=== PATIENT | female | born 1950 | race Caucasian/White ===

== ENCOUNTER → 2018-02-24 | Outpatient (CLI) | payer MEDICARE, OTHER ==
[2018-02-24 09:30] LABS: BASOPHILS # (AUTO) 0.1 10^3/uL (0.0-0.1); BASOPHILS % (AUTO) 2 % (0-10); EOSINOPHILS # (AUTO) 0.1 10^3/uL (0.0-0.3); EOSINOPHILS % (AUTO) 3 % (0-10); HEMATOCRIT 39 % (35-52); HEMOGLOBIN 13.6 G/DL (11.5-16.0); LYMPHOCYTES # (AUTO) 1.1 X 10^3 (1.0-4.0); LYMPHOCYTES % (AUTO) 33 % (12-44); MEAN CORPUSCULAR HEMOGLOBIN 29 PG (25-34); MEAN CORPUSCULAR HGB CONC 35 G/DL (32-36); MEAN CORPUSCULAR VOLUME 85 FL (80-99); MONOCYTES # (AUTO) 0.3 X 10^3 (0.0-1.0); MONOCYTES % (AUTO) 8 % (0-12); NEUTROPHILS # (AUTO) 1.8 X 10^3 (1.8-7.8); NEUTROPHILS % (AUTO) 54 % (42-75); PLATELET COUNT 266 10^3/uL (130-400); RED BLOOD COUNT 4.65 10^6/uL (4.35-5.85); RED CELL DISTRIBUTION WIDTH 12.6 % (10.0-14.5); WHITE BLOOD COUNT 3.4 10^3/uL (4.3-11.0)
[2018-02-24 09:55] LABS: ERYTHROCYTE SEDIMENTATION RATE 7 MM/HR (0-30)
[2018-02-24 09:57] LABS: ALANINE AMINOTRANSFERASE 24 U/L (0-55); ALKALINE PHOSPHATASE 54 U/L (40-136); BILIRUBIN,TOTAL 0.4 MG/DL (0.1-1.0); BUN/CREATININE RATIO 23; CALCIUM 9.3 MG/DL (8.5-10.1); CARBON DIOXIDE 25 MMOL/L (21-32); CHLORIDE 107 MMOL/L (98-107); CREATININE SERUM 0.87 MG/DL (0.60-1.30); GFR ESTIMATED > 60; GLUCOSE 99 MG/DL (70-105); POTASSIUM 4.1 MMOL/L (3.6-5.0); SODIUM 141 MMOL/L (135-145); TOTAL PROTEIN 6.8 GM/DL (6.4-8.2)
== END ==
LOC: LAB 09:06
PROVIDERS: ATTEND Allergy & Immunology
DX: E03.9 Hypothyroidism, unspecified (principal); E55.9 Vitamin D deficiency, unspecified; D83.9 Common variable immunodeficiency, unspecified; Z79.899 Other long term (current) drug therapy
CPT/HCPCS: 36415; 80053; 82306; 82784; 82787; 84436; 84443; 84481; 85025; 85652; 86141

== ENCOUNTER → 2018-03-15 | Outpatient (CLI) | payer MEDICARE, OTHER ==
[2018-03-15 10:21] LABS: BASOPHILS # (AUTO) 0.1 10^3/uL (0.0-0.1); BASOPHILS % (AUTO) 2 % (0-10); EOSINOPHILS # (AUTO) 0.1 10^3/uL (0.0-0.3); EOSINOPHILS % (AUTO) 3 % (0-10); HEMATOCRIT 41 % (35-52); LYMPHOCYTES # (AUTO) 1.5 X 10^3 (1.0-4.0); LYMPHOCYTES % (AUTO) 41 % (12-44); MEAN CORPUSCULAR HEMOGLOBIN 29 PG (25-34); MEAN CORPUSCULAR HGB CONC 35 G/DL (32-36); MEAN CORPUSCULAR VOLUME 85 FL (80-99); MEAN PLATELET VOLUME 8.7 FL (7.4-10.4); MONOCYTES # (AUTO) 0.3 X 10^3 (0.0-1.0); MONOCYTES % (AUTO) 9 % (0-12); NEUTROPHILS # (AUTO) 1.7 X 10^3 (1.8-7.8); NEUTROPHILS % (AUTO) 45 % (42-75); PLATELET COUNT 256 10^3/uL (130-400); RED BLOOD COUNT 4.76 10^6/uL (4.35-5.85); RED CELL DISTRIBUTION WIDTH 12.3 % (10.0-14.5); WHITE BLOOD COUNT 3.7 10^3/uL (4.3-11.0)
== END ==
LOC: LAB 10:10
PROVIDERS: ATTEND Allergy & Immunology
DX: R79.9 Abnormal finding of blood chemistry, unspecified (principal); Z79.899 Other long term (current) drug therapy
CPT/HCPCS: 36415; 85025

== ENCOUNTER → 2018-09-18 | Outpatient (CLI) | payer MEDICARE, OTHER ==
[2018-09-18 12:17] LABS: BASOPHILS # (AUTO) 0.1 10^3/uL (0.0-0.1); BASOPHILS % (AUTO) 1 % (0-10); EOSINOPHILS # (AUTO) 0.1 10^3/uL (0.0-0.3); EOSINOPHILS % (AUTO) 2 % (0-10); HEMATOCRIT 42 % (35-52); HEMOGLOBIN 14.3 G/DL (11.5-16.0); LYMPHOCYTES # (AUTO) 1.5 X 10^3 (1.0-4.0); LYMPHOCYTES % (AUTO) 37 % (12-44); MEAN CORPUSCULAR HEMOGLOBIN 29 PG (25-34); MEAN CORPUSCULAR HGB CONC 35 G/DL (32-36); MEAN CORPUSCULAR VOLUME 85 FL (80-99); MEAN PLATELET VOLUME 8.8 FL (7.4-10.4); MONOCYTES # (AUTO) 0.4 X 10^3 (0.0-1.0); MONOCYTES % (AUTO) 9 % (0-12); NEUTROPHILS % (AUTO) 51 % (42-75); PLATELET COUNT 289 10^3/uL (130-400); RED CELL DISTRIBUTION WIDTH 12.9 % (10.0-14.5)
[2018-09-18 12:32] LABS: ALBUMIN 4.2 GM/DL (3.2-4.5); BILIRUBIN,TOTAL 0.6 MG/DL (0.1-1.0); CALCIUM 9.5 MG/DL (8.5-10.1); CREATININE SERUM 1.09 MG/DL (0.60-1.30); POTASSIUM 3.9 MMOL/L (3.6-5.0); TOTAL PROTEIN 7.3 GM/DL (6.4-8.2)
[2018-09-18 13:01] LABS: ERYTHROCYTE SEDIMENTATION RATE 17 MM/HR (0-30)
== END ==
LOC: LAB 11:48
PROVIDERS: ATTEND Internal Medicine
DX: D83.9 Common variable immunodeficiency, unspecified (principal); Z79.899 Other long term (current) drug therapy
CPT/HCPCS: 36415; 80053; 82784; 82787; 85025; 85652; 86141

== ENCOUNTER → 2019-02-26 | Outpatient (CLI) | payer MEDICARE, OTHER | LOC: LAB 09:20 | PROVIDERS: ATTEND Internal Medicine | DX: D83.9 Common variable immunodeficiency, unspecified (principal) ==

== ENCOUNTER → 2019-02-26 | Outpatient (CLI) | payer MEDICARE, OTHER ==
[2019-02-26 10:11] LABS: CALCIUM 9.7 MG/DL (8.5-10.1); CREATININE SERUM 0.99 MG/DL (0.60-1.30); POTASSIUM 3.8 MMOL/L (3.6-5.0)
== END ==
LOC: LAB 09:17
PROVIDERS: ATTEND Allergy & Immunology
DX: N18.3 Chronic kidney disease, stage 3 (moderate) (principal)
CPT/HCPCS: 36415; 80048; 82784; 82787

== ENCOUNTER → 2019-06-21 | Outpatient (CLI) | payer MEDICARE, OTHER ==
--- NOTE | 2019-06-23 13:05 | Diagnostic Imaging Report ---
INDICATION: Routine screening. COMPARISON: Comparison is made with prior mammograms from 06/19/2017 and 05/26/2013. 2-D and 3-D bilateral screening mammography was performed. The current study was also evaluated with a Computer Aided Detection (CAD) system. 3-D tomosynthesis was also performed and reviewed. FINDINGS: Both breasts are heterogeneously dense, limiting the sensitivity of mammography. Benign parenchymal and vascular calcifications are identified bilaterally. No dominant mass or malignant-appearing microcalcifications are seen. Axillae are unremarkable. IMPRESSION: No mammographic features suspicious for malignancy are identified. ACR BI-RADS Category 2: Benign findings. Result letter will be mailed to the patient. Note: At least 10% of breast cancer is not imaged by mammography. Dictated by: Dictated on workstation # [id number]
== END ==
LOC: RAD 12:00
PROVIDERS: ATTEND Family Medicine
DX: Z12.31 Encounter for screening mammogram for malignant neoplasm of breast (principal)
CPT/HCPCS: 76642; 77067

== ENCOUNTER 2019-07-20 12:43 | Emergency (ER) | payer MEDICARE, OTHER ==
[~2019-07-20] VITALS: Ht 157 cm; Wt 59.0 kg
[2019-07-20] MEDS ORDERED: TETANUS,DIPTH,PERTUSS P/F (BOOSTRIX) 0.5 ML VIAL IM ONE (12:45)
[2019-07-20] MEDS ORDERED: NS IV 1000 ML 1,000 ML IV SCH (12:45)
--- NOTE | 2019-07-20 12:48 | ED General ---
General Stated Complaint: STROKE History of Present Illness Date Seen by Provider: Jul 20, 2019 Time Seen by Provider: 12:48 Initial Comments Patient brought in by EMS for evaluation of altered mental status. Patient is independent and lives on her own and is sharp and takes care of her own affairs. Reportedly patient spoke to her sister this morning at 7:30 and was normal. Patient's friend lives across the street and the friend tried calling her with no answer and went to the door and there is no answer and the friend called the [employer]'s department for a welfare check. After checking on the patient she was laying on the bathroom floor and minimally responsive so she was brought to the emergency room for further evaluation. On exam she has an abrasion with possible small laceration to right forehead and orbital contusion. She has a fixed gaze to the left with right-sided facial droop and right arm and leg weakness. The friend brought her medications it sounds as if she is on an infusion for an immune system issue but she did not want oh what was at the time. Reportedly she is also on a thyroid medication but did not bring that medicine. She also brought her medications with her which included triamterene hydrochlorothiazide, an SSRI, alprazolam, and some sinus medication as well as a prescription for Augmentin that was written 2 days ago. Patient is poorly verbal as she will moan and try and say yes and no. She has sonorous respirations with her eyes closed when I wake her up she can protect her airway and she has a patent airway with normal oxygen saturation on room air. There was no blood thinners or mention of blood thinners from the friend. Allergies and Home Medications Allergies Coded Allergies: No Known Drug Allergies (Unverified , 07/20/19) Patient Home Medication List Home Medication List Reviewed: Yes Review of Systems Review of Systems Constitutional: no symptoms reported (unable to obtain ROS due to inability to communicate) Past [employer]-Imppkv-Tvhk[employer] Hx Patient Social History Recent Foreign Travel: Yes Physical Exam Vital Signs Vital Signs - First Documented 07/20/19 12:43 Temp 35.5 Pulse 85 Resp 18 B/P (MAP) 106/72 (83) Pulse Ox 96 O2 Delivery Nasal Cannula Capillary Refill : Height, Weight, BMI Height: '" Weight: lbs. oz. kg; BMI Method: General Appearance: No Apparent Distress HEENT: Other (pupils are equal and reactive to light but there is a fixed left gaze) Neck: Supple Respiratory: Normal Breath Sounds, No Respiratory Distress, Other (sonorous respirations noted) Cardiovascular: Regular Rate, Rhythm Gastrointestinal: Non Tender, Soft Back: Normal Inspection Extremity: Normal Capillary Refill Neurologic/Psychiatric: Alert, Other (right facial droop as well as right upper and lower extremities are completely flaccid. Patient has minimal drift on left arm and leg when lifting off the bed. She will follow commands and try and say words but has slurred speech that is not understandable.) Skin: Warm/Dry, Other (abrasion noted above right eyebrow and the wound has not been cleansed to see if it needed repair at time of transfer.) Focused Exam Lactate Level 07/20/19 13:25: Lactic Acid Level Laboratory Tests Test 07/20/19 13:25 Progress/Results/Core Measures Suspected Sepsis SIRS Temperature: Pulse: Respiratory Rate: Laboratory Tests 07/20/19 13:16: White Blood Count 8.5 Blood Pressure / Mean: 07/20/19 13:25: Laboratory Tests 07/20/19 13:16: Platelet Count 312 Results/Orders Lab Results Laboratory Tests Test 07/20/19 13:16 07/20/19 13:25 Range/Units White Blood Count 8.5 4.3-11.0 10^3/uL Red Blood Count 4.70 4.35-5.85 10^6/uL Hemoglobin 13.5 11.5-16.0 G/DL Hematocrit 41 35-52 % Mean Corpuscular Volume 88 80-99 FL Mean Corpuscular Hemoglobin 29 25-34 PG Mean Corpuscular Hemoglobin Concent 33 32-36 G/DL Red Cell Distribution Width 11.9 10.0-14.5 % Platelet Count 312 130-400 10^3/uL Mean Platelet Volume 8.4 7.4-10.4 FL Neutrophils (%) (Auto) 87 H 42-75 % Lymphocytes (%) (Auto) 11 L 12-44 % Monocytes (%) (Auto) 2 0-12 % Eosinophils (%) (Auto) 0 0-10 % Basophils (%) (Auto) 1 0-10 % Neutrophils # (Auto) 7.4 1.8-7.8 X 10^3 Lymphocytes # (Auto) 0.9 L 1.0-4.0 X 10^3 Monocytes # (Auto) 0.2 0.0-1.0 X 10^3 Eosinophils # (Auto) 0.0 0.0-0.3 10^3/uL Basophils # (Auto) 0.1 0.0-0.1 10^3/uL Urine Color YELLOW Urine Clarity CLEAR Urine pH 8.0 5-9 Urine Specific [place] 1.020 1.016-1.022 Urine Protein NEGATIVE NEGATIVE Urine Glucose (UA) NEGATIVE NEGATIVE Urine Ketones NEGATIVE NEGATIVE Urine Nitrite NEGATIVE NEGATIVE Urine Bilirubin NEGATIVE NEGATIVE Urine Urobilinogen 0.2 < = 1.0 MG/DL Urine Leukocyte Esterase NEGATIVE NEGATIVE Urine RBC (Auto) NEGATIVE NEGATIVE Urine RBC NONE /HPF Urine WBC 0-2 /HPF Urine Crystals NONE /LPF Urine Bacteria FEW H /HPF Urine Casts NONE /LPF Urine Mucus NEGATIVE /LPF Urine Culture Indicated NO Urine Opiates Screen NEGATIVE NEGATIVE Urine Oxycodone Screen NEGATIVE NEGATIVE Urine Methadone Screen NEGATIVE NEGATIVE Urine Propoxyphene Screen NEGATIVE NEGATIVE Urine Barbiturates Screen NEGATIVE NEGATIVE Ur Tricyclic Antidepressants Screen NEGATIVE NEGATIVE Urine Phencyclidine Screen NEGATIVE NEGATIVE Urine Amphetamines Screen NEGATIVE NEGATIVE Urine Methamphetamines Screen NEGATIVE NEGATIVE Urine Benzodiazepines Screen NEGATIVE NEGATIVE Urine Cocaine Screen NEGATIVE NEGATIVE Urine Cannabinoids Screen NEGATIVE NEGATIVE My Orders Orders - ROYA HAWKINS DO Ct Head/Cervical Spine Wo (07/20/19 12:44) Chest 1 View Ap/Pa Only (07/20/19 12:45) Ekg Tracing (07/20/19 12:45) Alcohol (07/20/19 12:45) Blood Culture (07/20/19 12:45) Cbc With Automated Diff (07/20/19 12:45) Comprehensive Metabolic Panel (07/20/19 12:45) Acetaminophen (07/20/19 12:45) Drug Screen Stat (Urine) (07/20/19 12:45) Lactic Acid Analyzer (07/20/19 12:45) Lipase (07/20/19 12:45) Magnesium (07/20/19 12:45) Partial Thromboplastin Time (07/20/19 12:45) Probnp Fs (07/20/19 12:45) Protime With Inr (07/20/19 12:45) Salicylate (07/20/19 12:45) Troponin I Fs (07/20/19 12:45) Ua Culture If Indicated (07/20/19 12:45) Arterial Blood Gas (07/20/19 12:45) Dipht,Pertuss(Acell),Tet Adult (Boostrix (07/20/19 12:45) Ns Iv 1000 Ml (Sodium Chloride 0.9%) (07/20/19 12:45) Creatine Kinase (07/20/19 12:45) Vital Signs/I&O 07/20/19 12:43 Temp 35.5 Pulse 85 Resp 18 B/P (MAP) 106/72 (83) Pulse Ox 96 O2 Delivery Nasal Cannula Capillary Refill : Progress Note : Progress Note Patient's history and physical exam is consistent with a large MCA stroke. Before CT was read at [address] [place] [address] and started trying to get her transferred to a stroke center they could do clot retrieval. Dr. Allen at [facility] agreed to accept the patient. No further medications ordered or given at this time other than IV fluids and tetanus. We did have a brief discussion regarding intubation and he said his long as she is protecting her airway at this time intubation would be preferred to not be done. I do not think she necessarily needs admitted at this time as she has sonorous respirations with her eyes closed but she will wake up and interact appropriately. EMS was notified of the possibility of intubation and they said they would check on her frequently and monitor her vital signs closely. Patient's friend and sister were both updated and they agreed to the plan for transfer to for possible clot retrieval. I estimated her NIH stroke scale at 26. Obviously she is not a TPA candidate given the timeframe. We did try and arrange air transport however there was weather conditions limiting this possibility so she'll be driven to . Critical care time of 41 minutes. Critical Care Note Critical Care Total Time (minutes) 41 Departure Impression Primary Impression: Left acute arterial ischemic stroke, MCA (middle cerebral artery) Additional Impressions: Abrasion of forehead Contusion of right orbital tissues Disposition: 02 XFER SHT-TRM HOSP Condition: Critical Transfer Transfer Reason: Exceeds level of care Time Spoke to Accepting Phy: 13:30 Transfer Time: 13:50 Transfer Facility: [facility] Method of Transfer: EMS Departure-Patient Inst. Referrals: DMITRIY HERRERA MD (PCP/Family) Primary Care Physician ROYA HAWKINS DO Jul 20, 2019 12:48
--- NOTE | 2019-07-20 13:29 | Diagnostic Imaging Report ---
PROCEDURE: CT head and CT cervical spine without contrast. TECHNIQUE: Multiple contiguous axial images were obtained through the brain and cervical spine without the use of intravenous contrast. Sagittal and coronal reformations through the cervical spine were then performed. Auto Exposure Controls were utilized during the CT exam to meet ALARA standards for radiation dose reduction. All CT scans use one or more of the following dose optimizing techniques: automated exposure control, MA and/or KvP adjustment based on patient size and exam type or iterative reconstruction. INDICATION: Fall and right-sided weakness. COMPARISON: No prior studies are available for comparison. FINDINGS: CT head: There is a subtle area of low density and questionable sulcal effacement in the left middle cerebral artery territory. In addition, there appears to be hyperdense left MCA and features are concerning for an acute/subacute stroke. Right cerebral hemisphere is unremarkable. There is no mass effect or midline shift. No acute intra-axial or extra-axial hemorrhage is detected. Cisterns are patent. Visualized paranasal sinuses are clear. IMPRESSION: Findings suspicious for left MCA territory acute/subacute infarct, as described. No acute intracranial hemorrhage is detected. CT angiography may be useful for further evaluation. CT cervical spine: Curvature is normal. There is minimal retrolisthesis of C3 on C4. There is multilevel degenerative disc disease with variable disc space narrowing and marginal spurring. Prevertebral tissues are within normal limits. Odontoid is intact. No fractures are identified. IMPRESSION: Cervical spondylosis. No acute bony abnormality is detected. Attempts were made to call this report to the Emergency Department, however this was unsuccessful. Dictated by: Dictated on workstation # [id number]
[2019-07-20 13:37] LABS: HEMATOCRIT 41 % (35-52); HEMOGLOBIN 13.5 G/DL (11.5-16.0); MEAN CORPUSCULAR HEMOGLOBIN 29 PG (25-34); MEAN CORPUSCULAR HGB CONC 33 G/DL (32-36); MEAN CORPUSCULAR VOLUME 88 FL (80-99); MEAN PLATELET VOLUME 8.4 FL (7.4-10.4); PLATELET COUNT 312 10^3/uL (130-400); RED CELL DISTRIBUTION WIDTH 11.9 % (10.0-14.5); WHITE BLOOD COUNT 8.5 10^3/uL (4.3-11.0)
--- NOTE | 2019-07-20 13:37 | NUR ---
[employer] and [employer] were contacted and this time and declined due to weather. [facility] paged at this time.
[2019-07-20 13:38] LABS: BASOPHILS # (AUTO) 0.1 10^3/uL (0.0-0.1); BASOPHILS % (AUTO) 1 % (0-10); EOSINOPHILS % (AUTO) 0 % (0-10); LYMPHOCYTES # (AUTO) 0.9 X 10^3 (1.0-4.0); LYMPHOCYTES % (AUTO) 11 % (12-44); MONOCYTES # (AUTO) 0.2 X 10^3 (0.0-1.0); MONOCYTES % (AUTO) 2 % (0-12); NEUTROPHILS # (AUTO) 7.4 X 10^3 (1.8-7.8); NEUTROPHILS % (AUTO) 87 % (42-75)
--- NOTE | 2019-07-20 13:38 | Diagnostic Imaging Report ---
INDICATION: Fall, possible stroke. Frontal chest obtained at 1:21 p.m. FINDINGS: Heart is borderline in size. There is mild central vascular prominence. There is no focal infiltrate, pneumothorax, or pleural fluid. IMPRESSION: Borderline heart size with mild central vascular prominence. No acute consolidation, pneumothorax, or pleural fluid. Dictated by: Dictated on workstation # [id number]
[2019-07-20 13:44] LABS: BACTERIA,URINE FEW /HPF; BILIRUBIN,URINE NEGATIVE (NEGATIVE); CLARITY,URINE CLEAR; COLOR,URINE YELLOW; GLUCOSE, URINE (UA) NEGATIVE (NEGATIVE); KETONES,URINE NEGATIVE (NEGATIVE); LEUKOCYTE ESTERASE ,URINE NEGATIVE (NEGATIVE); NITRITE,URINE NEGATIVE (NEGATIVE); PROTEIN,URINE NEGATIVE (NEGATIVE); WBC,URINE 0-2 /HPF
[2019-07-20 13:46] LABS: AMPHETAMINE SCREEN, URINE NEGATIVE (NEGATIVE); BARBITURATE SCREEN URINE NEGATIVE (NEGATIVE); BENZODIAZEPINES SCREEN URINE NEGATIVE (NEGATIVE); CANNABINOID SCREEN, URINE NEGATIVE (NEGATIVE); COCAINE SCREEN URINE NEGATIVE (NEGATIVE); METHADONE STAT NEGATIVE (NEGATIVE); METHAMPHETAMINE SCREEN URINE S NEGATIVE (NEGATIVE); OPIATE SCREEN URINE NEGATIVE (NEGATIVE); OXYCODONE STAT NEGATIVE (NEGATIVE); PROPOXYPHENE STAT NEGATIVE (NEGATIVE); TRICYCLIC ANTIDEPRESSANTS SCRE NEGATIVE (NEGATIVE)
[2019-07-20 13:47] LABS: INR 0.9 (0.8-1.4); PROTHROMBIN TIME PATIENT 12.7 SEC (12.2-14.7)
[2019-07-20 14:05] LABS: ALANINE AMINOTRANSFERASE 29 U/L (0-55); ALKALINE PHOSPHATASE 75 U/L (40-136); BILIRUBIN,TOTAL 0.2 MG/DL (0.1-1.0); BUN/CREATININE RATIO 23; CALCIUM 8.9 MG/DL (8.5-10.1); CARBON DIOXIDE 25 MMOL/L (21-32); CHLORIDE 97 MMOL/L (98-107); CREATININE SERUM 0.69 MG/DL (0.60-1.30); GFR ESTIMATED > 60; GLUCOSE 179 MG/DL (70-105); MAGNESIUM 2.4 MG/DL (1.6-2.4); POTASSIUM 3.7 MMOL/L (3.6-5.0); SODIUM 136 MMOL/L (135-145)
[2019-07-20 14:06] LABS: ACETAMINOPHEN < 10 UG/ML (10-30); ALBUMIN 4.2 GM/DL (3.2-4.5); LIPASE 58 U/L (8-78); SALICYLATE < 5.0 MG/DL (5.0-20.0); TOTAL PROTEIN 7.4 GM/DL (6.4-8.2)
[2019-07-20 14:10] VITALS: BP 117/69
[2019-07-20 22:12] LABS: CREATINE KINASE 87 U/L (29-168)
== END 2019-07-20 14:10 | disposition short-term general hospital (02) ==
LOC: EDUNIT# 12:43 → ER FS 12:44
DX: I63.512 Cerebral infarction due to unspecified occlusion or stenosis of left middle cerebral artery (principal); S00.81XA Abrasion of other part of head, initial encounter; S05.11XA Contusion of eyeball and orbital tissues, right eye, initial encounter; W19.XXXA Unspecified fall, initial encounter
CPT/HCPCS: 36415; 51702; 70450; 71045; 72125; 80053; 80306; 80320; 80329; 81000; 82550; 83605; 83690; 83735; 83880; 84484; 85025; 85610; 85730; 87040; 93005